=== PATIENT | female | born 1995 | race Hispanic/Latino ===

== ENCOUNTER 2017-09-10 20:19 | Emergency (ER) | payer SELFPAY ==
[~2017-09-10] VITALS: Ht 170.2 cm; Wt 64.8 kg
[~2017-09-10 20:19] MED LIST: CLEOCIN PE75 MG/5 ML OR; CORTISPORIN OTI10 ML AD; NAPROXEN500 MG OR; NO HOME MEDS; PROMETHAZINE25 M1 RE; ROBITUSS11 OR; ROBITUSSIN AC10 ML PO; TAM75CAP PO; TYLENOL & COD12.5 ML OR; ZPAK PO
[2017-09-10 21:05] LABS: HEMATOCRIT 42.8 % (37.0-47.0); HEMOGLOBIN 14.7 g/dl (12.0-16.0); IMMATURE GRANULOCYTES 0.3 % (0.0-1.0); MEAN CELL VOLUME 89.7 fL CALC (80.0-100.0); MEAN CORPUSCULAR HGB 30.8 pG CALC (26.0-32.0); MEAN CORPUSCULAR HGB CONC 34.3 g/L CALC (32.0-36.0); NEUT# 6.3 thou/uL (2.00-7.15); RED BLOOD COUNT 4.77 mill/uL (4.20-5.60); RED CELL DISTRI WIDTH 12.6 % (11.5-15.5)
[2017-09-10 21:09] LABS: URINE BILIRUBIN - DIPSTICK NEGATIVE (NEGATIVE); URINE BLOOD DIPSTICK NEGATIVE (NEGATIVE); URINE CLARITY CLEAR; URINE COLOR YELLOW; URINE GLUCOSE - DIPSTICK NEGATIVE (NEGATIVE); URINE KETONE NEGATIVE (NEGATIVE); URINE LEUK ESTERASE NEGATIVE (NEGATIVE); URINE NITRITE - DIPSTICK NEGATIVE (Negative); URINE PH 6.5 (4.5-8.0); URINE PROTEIN - DIPSTICK NEGATIVE (NEG-TRACE); URINE UROBILINOGEN - DIPSTICK 0.2 E.U./dL (0.2)
[2017-09-10 21:12] LABS: ALBUMIN 5.1 g/dL (3.2-5.0); ALKALINE PHOSPHATASE 77 u/l (38-126); AMYLASE 55 u/l (30-110); ANION GAP 19 (6-22 (CALC)); BILIRUBIN, TOTAL 0.5 mg/dL (0.0-1.4); BUN 8 mg/dL (7-17); BUN/CREATININE RATIO 12 (12-20 (CALC)); CALCIUM 9.7 mg/dL (8.4-10.2); CARBON DIOXIDE 25 mmol/l (22-30); CHLORIDE 104 mmol/l (95-108); CREATININE 0.7 mg/dL (0.5-1.0); GFR > 60 ML/MIN (>=60 (CALC)); GFR FOR AFR.AMER. > 60 ML/MIN (>=60 (CALC)); GLUCOSE 83 mg/dL (65-105); LIPASE 108 u/l (23-300); POTASSIUM 3.7 mmol/l (3.5-5.1); SGOT/AST 20 u/l (14-36); SGPT/ALT 31 u/l (9-52); SODIUM 144 mmol/l (137-146); TOTAL PROTEIN 8.4 g/dL (6.3-8.2)
[2017-09-11 00:15] VITALS: BP 120/71
== END 2017-09-11 00:25 | disposition home or self-care (01) | DRG 392 ==
LOC: ED 20:19
PROVIDERS: Emergency Medicine
DX: R10.11 Right upper quadrant pain (principal); R50.9 Fever, unspecified; R10.31 Right lower quadrant pain; Z72.0 Tobacco use; Z72.89 Other problems related to lifestyle
CPT/HCPCS: Q9967

== ENCOUNTER 2025-01-13 15:45 | Emergency (ER) | payer MEDICAID ==
[~2025-01-13] VITALS: Ht 170.2 cm; Wt 79.3 kg
[2025-01-13 16:15] VITALS: BP 135/85
[2025-01-13 16:30] VITALS: BP 113/80
[2025-01-13 16:45] VITALS: BP 128/75
[2025-01-13 17:00] VITALS: BP 113/81
[2025-01-13 17:15] VITALS: BP 120/77
[2025-01-13] MEDS ORDERED: NAPROXEN500 MG PO (17:19)
[2025-01-13] MEDS ORDERED: KETOROLAC TROMETHAMINE 30 MG/ML SDV IM ONE (17:20)
[2025-01-13 17:30] VITALS: BP 115/72
== END 2025-01-13 17:48 | disposition home or self-care (01) | DRG 563 ==
LOC: ED 15:45
DX: S93.601A Unspecified sprain of right foot, initial encounter (principal); F17.200 Nicotine dependence, unspecified, uncomplicated; X50.0XXA Overexertion from strenuous movement or load, initial encounter; Y93.44 Activity, trampolining